=== PATIENT | male | born 2000 | race Caucasian/White ===

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

== ENCOUNTER 2024-09-12 20:20 | Emergency (ER) | payer OTHER ==
[~2024-09-12] VITALS: Ht 190.5 cm; Wt 108.9 kg
[2024-09-12 20:32] VITALS: BP 140/97
[2024-09-12] MEDS ORDERED: Dexamethasone Sod Phos 10 MG/ML 1ML VIAL PO ONE (20:35)
[2024-09-12 20:59] LABS: INFLUENZA A AG Negative (NEGATIVE)
[2024-09-12 21:00] LABS: CORONAVIRUS COVID-19 AG Negative (NEGATIVE); INFLUENZA B AG Negative (NEGATIVE)
== END 2024-09-12 21:10 | disposition home or self-care (01) ==
LOC: ER 20:20
PROVIDERS: Physician Assistant
DX: J02.9 Acute pharyngitis, unspecified (principal); Z59.89 Other problems related to housing and economic circumstances
CPT/HCPCS: 87081; 87428-QW; 87430; 99282; J1100